=== PATIENT | male | born 1950 | race Caucasian/White ===

== ENCOUNTER 2016-11-18 13:33 | Day surgery (SDC) | payer MEDICARE, OTHER ==
--- OUTSIDE RECORDS SUMMARY | 2016-11-18 13:38 | XMS REPORT | Continuity of Care Document ---
:1950 Author Organization [facility] ([facility]) Address [address] [place] [place] [address] Phone [phone] Care Team Providers Name Role Phone Ivory Roberto Primary Care Provider [phone] Source Comments This disclosure is being made pursuant to the Care Everywhere program, applicable federal and state laws, and may not contain all informaitonavailable regarding this patient.[facility] ([facility]) Active Allergies and Adverse Reactions No Known Allergies Current Medications Prescription Sig. Disp. Refills Start Date End Date Status latanoprost 0.005 % Instill 1 Drop Active ophthalmic solution onto both eyes every evening. timolol (BETIMOL) 0.5 Instill 1 Drop Active % ophthalmic solution onto both eyes daily. aspirin 81 mg EC Take 81 mg by Active tablet mouth daily. lovaSTATIN 40 mg Take 40 mg by Active tablet mouth every evening. hydrocortisone Insert rectally 2 Active (PROCTOCORT) 1 % times daily. rectal cream albuterol (PROVENTIL Use 2 Puffs by Active HFA) 90 mcg/Actuation inhalation every 4 inhaler hours as needed. amLODIPine 10 mg Take 10 mg by Active tablet mouth daily. carvedilol 25 mg Take 50 mg by Active tablet mouth 2 times daily. chlorthalidone 25 mg Take 25 mg by Active tablet mouth daily. cloNIDine 0.1 mg/24 hr Apply 1 Patch on Active patch the skin 2 times daily. finasteride 5 mg Take 5 mg by mouth Active tablet daily. glipiZIDE 5 mg tablet Take 5 mg by mouth Active daily. losartan 100 mg tablet Take 100 mg by Active mouth daily. metFORMIN 850 mg Take 850 mg by Active tablet mouth 2 times daily with meals. omeprazole 20 mg Take 20 mg by Active enteric coated capsule mouth 2 times daily. spironolactone 25 mg Take 50 mg by Active tablet mouth daily. cloNIDine HCl 0.1 mg 09/07/2016 Active tablet potassium gluconate Active 500 mg (83 mg) tab oxybutynin 5 mg tablet Take 1 tablet (5 60 tablet 11 10/08/2016 Active mg total) by mouth 2 times daily. Active Problems Problem Noted Date Benign non-nodular prostatic hyperplasia with lower urinary tract symptoms 07/2016 Benign prostatic hyperplasia with lower urinary tract symptoms 07/05/2016 Most Recent Encounters Date Type Specialty Providers Description 10/08/2016 Office Visit Pathology Arnav Martinez MD Chief Comp: Patient Lab Services, [place] Reported Reason For Visit 10/08/2016 Office Visit Urology Arnav Martinez MD Dx: Lower urinary tract symptoms (LUTS) (Primary Dx) 10/08/2016 Telephone Urology Mario Booth MD Chief Comp: Discuss Test Results 09/23/2016 Office Visit Urology Arnav Martinez MD Dx: Lower urinary tract symptoms (LUTS) (Primary Dx) Social History Tobacco Use Types Packs/Day Years Used Date Former Smoker Cigarettes 3 Quit: 07/05/1983 Smokeless Tobacco: Never Used Tobacco Cessation:Counseling Given: Yes Comments: Last Filed Vital Signs Vital Sign Reading Time Taken Blood Pressure 136/84 10/08/2016 9:10 AM CDT Pulse 79 10/08/2016 9:10 AM CDT Temperature 36.9 C (98.4 F) 10/08/2016 9:10 AM CDT Respiratory Rate 20 07/29/2016 9:57 AM 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 Height 1.727 m (5' 8") 07/05/2016 12:05 PM 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 Weight 114.306 kg (252 lb) 07/05/2016 12:05 PM 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 Body Mass Index 38.33 07/05/2016 12:05 PM 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 Oxygen Saturation 99% 07/05/2016 12:05 PM 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 Plan of Care Date Type Specialty Providers Description 06/20/2017 Appointment Urology Arnav Martinez MD Chief Comp: Patient [address] Reported [place] [address] [phone] (Fax) Health Maintenance Due Date Last Done Comments HCV Screening 1950 Hepatitis B Vaccine (1 of 3 - Primary Series) 1950 Tdap Vaccine 11/21/1959 Lipid Disorder Screening 1966 Td Vaccine 1966 Colonoscopy 1998 Zoster Vaccine 2008 Pneumococcal Vaccine (1 of 2 - PCV13) 2013 Influenza Vaccine: Seasonal (Season Ended) 2017 Prostate Cancer Screening 10/08/2018 10/08/2016 Results from Last 3 Months PROSTATE SPECIFIC ANTIGEN (PSA), TOTAL DIAGNOSTIC (10/08/2016 10:18 AM) Component Value Range PSA, Diagnostic 0.20Comment: 0.00-4.50 ng/mL Age specific normal values from the literature for PSA are provided as a guide only.No one decision level is appropriate when utilizing PSA in screening situation.Age, family history, previous values, and other factors should be used in decisions involving PSA values. Reference Ranges: 40-49 years:0.00-2.50 ng/mL 50-59 years:0.00-3.50 ng/mL 60-69 years:0.00-4.50 ng/mL 70-79 years:0.00-6.50 ng/mL Specimen Blood POST-VOID RESIDUAL (BVI), POINT OF CARE (10/08/2016) Component Value Range POST-VOID RESIDUAL 0 ml
[2016-11-18 14:08] VITALS: BP 149/77
[2016-11-18] MEDS ORDERED: TETRACAINE HCL 150 DROP BTL LEFTEYE ONE (14:27)
[2016-11-18] MEDS ORDERED: [UNRECOGNIZED DRUG - REMARK] OP ONE (14:30)
[2016-11-18] MEDS ORDERED: HYPROMELLOSE 150 DROP BTL LEFTEYE ONE (14:30)
== END 2016-11-18 13:34 | disposition home or self-care (01) ==
LOC: AMB 13:33
PROVIDERS: ATTEND Ophthalmology
PROC: 08933ZZ Drainage of Left Anterior Chamber, Percutaneous Approach (ICD-10-PCS; principal; 2016-11-18 13:55)
DX: H40.1120 Primary open-angle glaucoma, left eye, stage unspecified (principal); E11.9 Type 2 diabetes mellitus without complications; I10 Essential (primary) hypertension; E78.00 Pure hypercholesterolemia, unspecified; Z87.891 Personal history of nicotine dependence; Z68.36 Body mass index [BMI] 36.0-36.9, adult